=== PATIENT | male | born 1935 | race Caucasian/White ===

== ENCOUNTER 2018-11-15 18:28 | Emergency (ER) | payer OTHER, MEDICARE ==
[2018-11-15] MEDS ORDERED: LIDOCAINE 1% MPF 5 ML VIAL ONE (19:33)
--- NOTE | 2018-11-15 19:54 | ER ---
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 Transition of care: patient was not received from another setting of care. Onset of symptoms was November 15, 2018. Risk Assessment: Do you want to hurt yourself or someone else? Patient reports no desire to harm self or others. Initial Sepsis Screen: Does the patient meet any 2 criteria? No. Patient's initial sepsis screen is negative. Does the patient have a suspected source of infection? No. Patient's initial sepsis screen is negative. Care prior to arrival: None. 18:32 Method Of Arrival: Ambulatory hb 18:32 Acuity: NEAL 4 hb Triage Assessment: 20:18 Injury Description: Laceration. tr5 Historical: - Allergies: 18:33 No Known Allergies; hb - Immunization history:: Adult Immunizations up to date. - Social history:: Smoking status: Patient/guardian denies using tobacco. - Ebola Screening: : No symptoms or risks identified at this time. Screenin:26 Abuse screen: Denies threats or abuse. Nutritional screening: No deficits noted. tr5 Tuberculosis screening: No symptoms or risk factors identified. Fall Risk None identified. Assessment: 19:26 General: Appears in no apparent distress. Behavior is calm, cooperative, appropriate tr5 for age. Pain: Complains of pain in dorsal aspect of distal phalanx of right thumb Pain does not radiate. Neuro: Level of Consciousness is awake, alert, Oriented to person, place, time, Chief Security Officer are equal bilaterally Moves all extremities. Cardiovascular: Heart tones present Capillary refill < 3 seconds Pulses are all present. Edema is absent. Respiratory: Airway is patent Respiratory effort is even, unlabored, Respiratory pattern is regular, symmetrical. GI: No signs and/or symptoms were reported involving the gastrointestinal system. : No signs and/or symptoms were reported regarding the genitourinary system. EENT: No signs and/or symptoms were reported regarding the EENT system. Derm: Wound noted dorsal aspect of distal phalanx of right thumb. Musculoskeletal: Capillary refill < 3 seconds, Range of motion: intact in all extremities. Vital Signs: 18:32 BP 156 / 76; Pulse 54; Resp 16; Temp 97.8; Pulse Ox 100% on R/A; Weight 90.72 kg; hb Height 5 ft. 11 in. (180.34 cm); Pain 2/10; 18:32 Body Mass Index 27.89 (90.72 kg, 180.34 cm) hb ED Course: 18:30 Patient arrived in ED. mr 18:32 Triage completed. hb 18:33 Arm band placed on. hb 18:36 Feng Corley PA is PHCP. cp 18:36 Florencio Sofia MD is Attending Physician. cp 19:16 Johnny Duran, LEN is Primary Nurse. tr5 19:26 Bed in low position. Call light in reach. Side rails up X 1. tr5 20:18 No provider procedures requiring assistance completed. Patient did not have IV access tr5 during this emergency room visit. Administered Medications: 20:17 Drug: Tetanus-Diphtheria Toxoid Adult 0.5 ml {Cv Rn: Trendient. Exp: tr5 06/18/2020. Lot #: [id number]. } Route: IM; Site: right deltoid; 20:17 Follow up: Response: No adverse reaction; Medication administered at discharge. tr5 Outcome: 19:54 Discharge ordered by . cp 20:18 Discharged to home ambulatory. tr5 20:18 Condition: stable 20:18 Discharge instructions given to patient, family, Instructed on discharge instructions, follow up and referral plans. medication usage, Demonstrated understanding of instructions, follow-up care, medications. 20:19 Patient left the ED. tr5 Signatures: Per Leann pastor Feng Corley PA PA cp Baxter, Heather, LEN HARRINGTON hb Johnny Duran RN RN tr5
--- NOTE | 2018-11-15 19:54 | EDPHYS ---
Physician Documentation [facility] Name: Kaiser Waldrop Age: 83 yrs Sex: Male : 1935 Arrival Date: 11/15/2018 Time: 18:30 Bed 24 Private MD: ED Physician Florencio Sofia HPI: 11/15 19:13 This 83 yrs old Male presents to ER via Ambulatory with complaints of Thumb cp Injury. 19:13 The patient has a laceration occurred at home, and there are no complicating factors. 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 19:13 The laceration(s) is(are) located on the bowens side of distal phalanx right thumb. cp Onset: The symptoms/episode began/occurred just prior to arrival. Associated signs and symptoms: Pertinent negatives: heavy bleeding, numbness distal to injury, suspected foreign body. Historical: - Allergies: 18:33 No Known Allergies; hb - Immunization history:: Adult Immunizations up to date. - Social history:: Smoking status: Patient/guardian denies using tobacco. - Ebola Screening: : No symptoms or risks identified at this time. ROS: 19:20 Constitutional: Negative for body aches, chills, fever, poor PO intake. cp 19:20 Cardiovascular: Negative for chest pain, palpitations. cp 19:20 Respiratory: Negative for cough, shortness of breath, wheezing. 19:20 Abdomen/GI: Negative for abdominal pain, nausea, vomiting, and diarrhea. 19:20 Skin: Positive for laceration(s), of the bowens aspect distal phalanx right thumb. 19:20 All other systems are negative. Exam: 19:25 Constitutional: The patient appears in no acute distress, alert, awake, non-toxic, well cp developed, well nourished. 19:25 Head/Face: Normocephalic, atraumatic. cp 19:25 Musculoskeletal/extremity: ROM: limited active range of motion, in the right thumb, Perfusion: the extremity is normally perfused throughout, Sensation intact. 19:25 Skin: injury, avulsion(s), a small of the bowens side distal phalanx of right thumb, that can be described as no foreign body, irregular, with mild bleeding. Vital Signs: 18:32 BP 156 / 76; Pulse 54; Resp 16; Temp 97.8; Pulse Ox 100% on R/A; Weight 90.72 kg; hb Height 5 ft. 11 in. (180.34 cm); Pain 2/10; 18:32 Body Mass Index 27.89 (90.72 kg, 180.34 cm) hb MDM: 18:39 Patient medically screened. cp 19:20 Differential diagnosis: superficial laceration, skin avulsion. cp 19:53 Data reviewed: vital signs, nurses notes, and as a result, I will discharge patient. cp 19:53 Counseling: I had a detailed discussion with the patient and/or guardian regarding: the cp historical points, exam findings, and any diagnostic results supporting the discharge/admit diagnosis, to return to the emergency department if symptoms worsen or persist or if there are any questions or concerns that arise at home. Response to treatment: the patient's symptoms have markedly improved after treatment, and as a result, I will discharge patient. 19:54 ED course: VSS. Surgi seal and pressure dressing applied to wound and bleeding cp controlled. Recommend changing dressing 24 to 48 hours. 11/15 19:14 Order name: Dressing - Wound; Complete Time: 20:17 cp 11/15 19:14 Order name: Gloves, Sterile; Complete Time: 20:17 cp 11/15 19:14 Order name: Setup Suture Tray; Complete Time: 20:17 cp 11/15 19:15 Order name: Wound Care: please clean and irrigate wound; Complete Time: 19:29 cp Administered Medications: 20:17 Drug: Tetanus-Diphtheria Toxoid Adult 0.5 ml {G[employer] Laborer: [id number]. Exp: tr5 06/18/2020. Lot #: [id number]. } Route: IM; Site: right deltoid; 20:17 Follow up: Response: No adverse reaction; Medication administered at discharge. tr5 Disposition: 20:30 Chart complete. cp Disposition: 11/15/18 19:54 Discharged to Home. Impression: Laceration without foreign body of right thumb without damage to nail. - Condition is Stable. - Discharge Instructions: Nonsutured Laceration Care. - Prescriptions for Keflex 500 mg Oral Capsule - take 1 capsule by ORAL route every 8 hours for 7 days; 21 capsule. - Medication Reconciliation Form, Thank You Letter, Antibiotic Education, Prescription Opioid Use form. - Follow up: Private Physician; When: 2 - 3 days; Reason: Worsening of condition. - Problem is new. - Symptoms have improved. Addendum: 11/17/2018 22:46 Co-signature as Attending Physician, Florencio Sofia MD. g s Signatures: Feng Corley PA PA cp Baxter, Heather, RN RN Florencio Sofia MD MD gs Johnny Duran RN RN tr5 Corrections: (The following items were deleted from the chart) 11/15 20:19 19:54 11/15/2018 19:54 Discharged to Home. Impression: Laceration without foreign body tr5 of right thumb without damage to nail. Condition is Stable. Forms are Medication Reconciliation Form, Thank You Letter, Antibiotic Education, Prescription Opioid Use. Follow up: Private Physician; When: 2 - 3 days; Reason: Worsening of condition. Problem is new. Symptoms have improved. cp
[2018-11-15] MEDS ORDERED: TETANUS & DIPHTHERIA TOX,ADULT 0.5 ML VIAL ONE (20:09)
[2018-11-15 20:29] VITALS: BP 156/76; TEMP 97.8; O2SAT 100
== END 2018-11-15 20:19 | disposition home or self-care (01) ==
LOC: ER 18:28
DX: S61.011A Laceration without foreign body of right thumb without damage to nail, initial encounter (principal); W26.8XXA Contact with other sharp object(s), not elsewhere classified, initial encounter; Y93.89 Activity, other specified; Y92.009 Unspecified place in unspecified non-institutional (private) residence as the place of occurrence of the external cause; Z23 Encounter for immunization
CPT/HCPCS: 90471; 90714; 99283